=== PATIENT | male | born 1980 | race Caucasian/White ===

== ENCOUNTER 2019-01-08 10:04 | Emergency (ER) | payer BC, OTHER ==
[2019-01-08] MEDS ORDERED: predniSONE TAB* 20 MG PO ONE (11:03)
--- NOTE | 2019-01-08 11:59 | UC ---
Skin Complaint HPI - HPI Summary HPI Summary: Patient is a 38yo male presenting with poison miranda on his legs, arms, back, and now nose for the past few days. States it has worsened every day since it appeared. States he gets poison miranda every year and it mostly goes away on its own but this time he says it is worse. Patient notes some itching and mild burning. He has only tried putting witch lu on it without relief. Patient denies SOB and wheezing. Denies n/v/d. 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 - History of Current Complaint Chief Complaint: UCRash Stated Complaint: RASH Hx Obtained From: Patient Onset/Duration: Sudden Onset, Lasting Days Skin Exposure Onset/Duration: Days Ago Timing: Constant Onset Severity: Mild Current Severity: Mild Pain Intensity: 2 Pain Scale Used: 0-10 Numeric Location: Generalized Character: Pruritus, Pain Aggravating Factor(s): Nothing Alleviating Factor(s): Nothing Associated Signs & Symptoms: Positive: Rash. Negative: Nausea, Vomiting, Numbness, Diaphoresis, Difficulty Breathing, Fever, Chills, Wheezing, Throat Tightening, Abdominal Pain, Lightheadedness, Syncope Related History: Possible Reaction to: Environmental Exposure - Allergy/Home Medications Allergies/Adverse Reactions: Allergies Allergy/AdvReac Type Severity Reaction Status Date / Time No Known Allergies Allergy Verified 01/08/19 10:18 PMH/Surg Hx/FS Hx/Imm Hx Previously Healthy: Yes - Surgical History Surgical History: Yes Surgery Procedure, Year, and Place: right acl repair - Family History Known Family History: Positive: Non-Contributory - Social History Occupation: Employed Full-time Alcohol Use: Daily Substance Use Type: None Smoking Status (MU): Never Smoked Tobacco Review of Systems All Other Systems Reviewed And Are Negative: Yes Constitutional: Positive: Negative Skin: Positive: Rash Eyes: Positive: Negative Respiratory: Positive: Negative Cardiovascular: Positive: Negative Gastrointestinal: Positive: Negative Motor: Positive: Negative Neurovascular: Positive: Negative. Negative: Decreased Sensation Musculoskeletal: Negative: Arthralgia, Decreased ROM, Edema, Myalgia Neurological: Negative: Headache, Weakness, Paresthesia, Numbness Psychological: Positive: Negative Physical Exam Triage Information Reviewed: Yes Appearance: Well-Appearing, No Pain Distress, Well-Nourished Vital Signs: Initial Vital Signs Temp 98.3 F 01/08/19 10:13 Pulse 56 09/24/19 10:13 Resp 18 01/08/19 10:13 BP 142/92 01/08/19 10:13 Pulse Ox 100 01/08/19 10:13 Vital Signs Reviewed: Yes Eyes: Positive: Conjunctiva Clear ENT: Positive: Hearing grossly normal Neck: Positive: Supple Respiratory: Positive: Lungs clear, No respiratory distress, No accessory muscle use. Negative: Wheezing Cardiovascular: Positive: RRR Musculoskeletal Exam: Normal Musculoskeletal: Positive: Strength Intact, ROM Intact, No Edema Neurological: Positive: Alert Psychological: Positive: Age Appropriate Behavior Skin: Positive: Rashes - streaking and patches of erythema with overlying copious amount of vesicles and various bullae noted on anterior forearms, diffusely over entire right leg, left thigh, and two small vesicles on the nose. no drainage noted. no edema noted. Course/Dx - Course Course Of Treatment: Patient states he often gets poison miranda and states prednisone has helped in the past when it becomes this widespread. Therefore, the patient received a dose of prednisone here and was sent home with a prescription as well. He may take ibuprofen as directed for pain relief. 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 Patient voiced understanding and agreed to the treatment plan. - Diagnoses Provider Diagnosis: Poison miranda dermatitis Discharge ED - Sign-Out/Discharge Documenting (check all that apply): Patient Departure All imaging exams completed and their final reports reviewed: No Studies - Discharge Plan Condition: Stable Disposition: HOME Prescriptions: predniSONE TAB* [Deltasone 20 MG TAB*] 40 mg PO DAILY #10 tab Patient Education Materials: Poison Miranda (ED) Referrals: [facility] [Outside] - If Needed [facility] [Outside] - If Needed Additional Instructions: As discussed, take prednisone as prescribed for your poison miranda dermatitis. Avoid contact with poison miranda if possible and wear protective clothing when working outside. If your symptoms persist or begin to worsen, follow up with your primary care physician or you can go to the [facility] as listed below. - Billing Disposition and Condition Condition: STABLE Disposition: Home
== END 2019-01-08 11:17 | disposition home or self-care (01) ==
LOC: UCEAST 10:04
DX: L23.7 Allergic contact dermatitis due to plants, except food (principal)
CPT/HCPCS: 99202; G0463; J7512